=== PATIENT | male | born 1990 | race Two or more races ===

== ENCOUNTER 2024-09-24 00:29 | Emergency (ER) | payer MEDICAID, SELFPAY ==
[2024-09-24 00:31] VITALS: BMI 29.5
[2024-09-24 00:39] VITALS: BP 152/98; PULSE 103; RESP 18; TEMP 36.8; O2SAT 100
--- NOTE | 2024-09-24 00:48 | PD.EDANX ---
ED Anxiety RME/HPI General Chief Complaint: General Adult/Misc Complain Stated Complaint: STATES HE IS DYING Time Seen by Provider: 09/24/24 00:47 Arrival date/time: 09/24/24 00:29 RME / HPI RME / HPI narrative: This section includes all my notes and documentations, including HPI, PE, and ED course. David Pink MD HPI: 34 y/o male with Hx of Recreational Drug use presents with tasting blood and believes that he is bleeding internally. He states that his blood is pooling down in his arms and legs legs. No hematemesis or coffee-ground emesis. No abdominal pain. No rectal bleeding or tarry stools. No hematuria. No other complaints. ROS: All negative except as documented in HPI. Physical Exam: General: Alert and oriented. Appears severely anxious. Eyes: Conjunctivae and lids clear. ENT: No nasal congestion. Neck: Supple. Heart: RRR. Lungs: No respiratory distress. Good air movement. No rhonchi, wheezing, rales. Abdomen: Soft and nontender. Normal bowel sounds. No distension. No rebound or guarding. Back: No CVA tenderness. Skin: Warm and dry. Neuro: Alert and oriented X 3. I reviewed all diagnostic test results: Blood tests and urine tests remarkable for positive UDS for Fentanyl, Methamphetamine, and Marijuana. At this point, diagnoses include: Methamphetamine Intoxication with fentanyl and marijuana use. Treatment here included: Xanax 1 mg. Significant treatment noted. Recommended outpatient care. Based on my best medical judgment, made decision no further evaluation or treatment indicated at this time. Patient and mom understands and agrees to the discharge instructions customized and printed, see below. Discharge Instructions from Dr. Pink printed for you: 1. After evaluation, you are not bleeding anywhere. Your blood count is completely normal. 2. Your symptoms are due to methamphetamine intoxication. This is altering your normal thought processes. 3. Avoid all drugs (including fentanyl and marijuana) to prevent serious and even fatal injuries and illnesses. 4. See a private doctor later today on 09/24/2024. Ask for help quitting all drugs. 5. Seek immediate medical care with any concerns. David Pink MD Related Data Previous Rx's ?Medication ?Instructions ?Recorded amoxicillin 875 mg-potassium 1 tab PO BID #14 tabs 10/30/18 clavulanate 125 mg tablet (Augmentin) ibuprofen 800 mg tablet 800 mg PO TID #30 tabs 10/30/18 Allergies Allergy/AdvReac Type Severity Reaction Status Date / Time haloperidol (From Haldol) Allergy Verified 09/24/24 00:37 Review of Systems Review of Systems Systems Reviewed: All systems reviewed, normal except as documented Past Medical History Social History SUBSTANCE USE: marijuana, opiates (Fentanyl) and methamphetamine SUBSTANCE LAST USED: unknown ED Exam Narrative Physical exam: Refer to [facility] Course Quality Measures none Orders Category Date Time Status Drug Screen,Urine Stat Lab 09/24/24 00:47 Ordered UA, C/S IF [Urinalysis, C/S if Indicated] Stat Lab 09/24/24 00:48 Ordered Vital Signs Vital signs: Vital Signs Temperature 98.3 F 09/24/24 00:39 Pulse Rate 103 H 09/24/24 00:39 Respiratory Rate 18 09/24/24 00:39 Blood Pressure 152/98 H 09/24/24 00:39 Pulse Oximetry (%) 100 09/24/24 00:39 Oxygen Delivery Method Room Air 09/24/24 00:39 Anxiety MDM Narrative MDM Narrative: Scribe Attestation: IGinette, am scribing for and in the presence of Dr. Pink. Provider Notation: Although this document has been carefully reviewed, there may still be some phonetic and other typographical errors.? These errors are purely grammatical due to imperfections in the software program and should not be construed in any way to? compromise the substance of the patient's medical care during this visit. 34 y/o male with Hx of Recreational Drug use presents with tasting blood and believes that he is bleeding internally. He states that his blood is pooling down in his legs causing them to feel heavy. Denies hematuria, rectal bleeding, and bloody and tarry stool. No other complaints. Patient data External records reviewed:: [facility] previous records (Reviewed prior ED records from 01/15/23. Patient was seen for Cellulitis.) Clinical information provided by:: patient Social determinants that could affect healthcare access:: substance use (Methamphetamine, Marijuana) Patient has the following chronic illnesses:: Recreational drug use How is presenting disease/condition affected by chronic disease/condition?: exacerbated by Evaluation data The following diagnostics were reviewed and interpreted by me:: lab results Lab and/or radiology exams considered but not ordered:: None Interpretation Summary: I reviewed all diagnostic test results: Blood tests and urine tests remarkable for positive UDS for Fentanyl, Methamphetamine, and Marijuana. Medications / Prescriptions Medications or Prescriptions considered but not ordered:: None Medication administrations:: Xanax 1 mg Consultations Consultation(s) initiated? (list below): No Diagnosis Differential diagnosis anxiety: hyperventilation, panic disorder and acute anxiety Most likely diagnosis given after review of the tests above:: Methamphetamine Intoxication Admission Indicated Admission indicated?: not indicated Explain why admission is indicated or not indicated:: With significant improvement and no condition needing emergent intervention, there was no indication for admission. Admission Request Was there a request for admission?: No Disposition Plan Disposition Plan: Discharge Discharge Attestation Discharge Attestation: The patient and all family members were given an opportunity to ask questions and understood the discharge instructions. Discharge instructions specifically effects, indications for sooner follow up or return to the emergency department, and the expected course of current diagnosis. Patient condition: Stable Discharge Plan Plan Patient Disposition: HOME (Self Care) Prescriptions/Referrals Prescriptions/Med Rec: No Action ibuprofen 800 mg tablet 800 mg PO TID Qty: 30 0RF amoxicillin-pot clavulanate [Augmentin] 875-125 mg tablet 1 tab PO BID Qty: 14 0RF Problem List Clinical Impression: Methamphetamine intoxication Patient/Caregiver Discharge Instructions Discharge Activity: activity as tolerated Education Materials: Understanding Methamphetamine ..., ED Drug Abuse Additional Instructions: Discharge Instructions from Dr. Pink printed for you: 1. After evaluation, you are not bleeding anywhere. Your blood count is completely normal. 2. Your symptoms are due to methamphetamine intoxication. This is altering your normal thought processes. 3. Avoid all drugs (including fentanyl and marijuana) to prevent serious and even fatal injuries and illnesses. 4. See a private doctor later today on 09/24/2024. Ask for help quitting all drugs. 5. Seek immediate medical care with any concerns. Print Language: Armenian Stand Alone Forms: Karishma Award Info., Patient Portal Info Letter
[2024-09-24 01:20] LABS: Collection Type, Urine Clean Catch; Squamous Epithelial Cell,Urine 0 /hpf (0-5)
[2024-09-24 01:23] LABS: Basophils # (Auto) 0.1 Thou/mm3 (0.0-0.2); Basophils % (Auto) 1 % (0-2.5); Eosinophils # (Auto) 0.1 Thou/mm3 (0.0-0.5); Eosinophils % (Auto) 2 % (0-10); Hematocrit 41.3 % (41.0-53.0); Hemoglobin 13.6 g/dL (13.5-16.0); Immature Granulocytes Auto 0.02 Thou/mm3 (0.00-0.00); Lymphocytes # (Auto) 2.3 Thou/mm3 (1.0-4.8); Lymphocytes % (Auto) 35 % (10-50); Mean Corpuscular HGB Conc 32.9 g/dl (31.0-37.0); Mean Corpuscular Hemoglobin 31.3 pg (25.0-35.0); Mean Corpuscular Volume 95 fL (80-100); Monocytes # (Auto) 0.5 Thou/mm3 (0.0-0.8); Monocytes % (Auto) 7 % (0-12); Neutrophils # (Auto) 3.6 Thou/mm3 (1.8-7.7); Neutrophils % (Auto) 55 % (37-80); Nucleated Red Blood Cell # 0.00 Thou/mm3 (0.00-0.00); Nucleated Red Blood Cell % 0 /100 WBC (0); Platelet Count 210 Thou/mm3 (140-440); RDW Standard Deviation 43.8 fL (35.1-43.9); Red Blood Count 4.34 Miln/mm3 (4.50-5.90); White Blood Count 6.4 Thou/mm3 (3.8-10.6)
[2024-09-24 01:27] LABS: Bilirubin,Urine Negative (Negative); Blood,Urine Trace (Negative); Clarity,Urine Clear (Clear/Hazy); Color,Urine Yellow (Lt Yel-Yel); Culture Indicated,Urine Not Indicated; Glucose, Urine Negative (Negative); Ketones,Urine Negative (Negative); Leukocyte Esterase,Urine Negative (Negative); Nitrite,Urine Negative (Negative); PH,Urine 5.5 (5.0-7.0); Protein,Urine Trace (Neg - Trace); RBC,Urine 4 /hpf (0-3); Specific Gravity,Urine 1.032 (1.001-1.035); Urobilinogen,Urine Negative mg/dL (0.0-1.0); WBC,Urine 1 /hpf (0-5)
[2024-09-24 01:32] LABS: Sperm,Urine Present
[2024-09-24 01:33] LABS: Amphetamine/Methamp Scrn,U Positive (Negative); Barbiturate Screen,Urine Negative (Negative); Benzodiazepines Screen,Urine Negative (Negative); Benzoylecgonine Screen, Ur Negative (Negative); Fentanyl Screen,Urine Positive (Negative); Opiate Screen,Urine Negative (Negative); THC Screen,Urine Positive (Negative)
[2024-09-24 01:41] LABS: Anion Gap 9 (7-16); BUN/Creatinine Ratio 11 Ratio (12-20); Blood Urea Nitrogen 11 mg/dL (9-23); Calcium 9.1 mg/dL (8.3-10.6); Carbon Dioxide 28.9 mMol/L (20.0-31.0); Chloride 109 mMol/L (98-107); Creatinine (Component) 1.0 mg/dL (0.6-1.3); Estimated Creatinine Clearance 113.7 mL/min (>60); Glucose 121 mg/dL (74-106); Osmolality,Calculated 292 (275-295); Potassium 3.8 mMol/L (3.4-5.1); Sodium 147 mMol/L (136-145); eGFR > 60 See Note
== END 2024-09-24 01:50 | disposition home or self-care (01) ==
LOC: SERX 04:46
PROVIDERS: Emergency Provider Emergency Medicine; PCP Family Medicine
DX: F15.129 Other stimulant abuse with intoxication, unspecified (principal)
CPT/HCPCS: 36415; 80048; 80307; 81001; 85025; A9270